=== PATIENT | male | born 1960 ===

== ENCOUNTER → 2023-06-30 14:34 | Outpatient (CLI) | payer BC, OTHER, SELFPAY ==
--- NOTE | ~2023-06-30 | MR_ITS ---
MRI of the lumbar spine Clinical History: Left leg pain Technique: Axial T2-weighted images, and sagittal T1-weighted, T2-weighted, and T2 fat-sat images wer e acquired. COMPARISON: 02/24/2023 Findings: There is no acute fracture or subluxation of the lumbar spine. There is posterior interbody fusion at the L4-L5 level, with orthopedic hardware and L4 laminectomy. No suspicious bone marrow si gnal abnormality evident. At L1-L2, there is no disc bulge or herniation. There is moderate to advanced facet arthropathy. Ther e is mild central canal stenosis/thecal sac compression. Bilateral neural foramina are preserved. At L2-L3, there is advanced facet arthropathy, which contributes to mild central canal stenosis/theca l sac compression. Bilateral neural foramina are preserved. At L3-L4, there is mild disc bulge and severe facet arthropathy, with severe spinal canal stenosis/th ecal sac compression. There is advanced bilateral neural foraminal narrowing. At L4-L5, there is mild disc bulge with posterior decompression. No central canal stenosis. There is moderate to advanced bilateral neural foraminal narrowing. At L5-S1, there is mild disc bulge with severe facet arthropathy. No central canal stenosis. There is severe bilateral neural foraminal narrowing, left worse than right. Paravertebral soft tissues are unremarkable aside from expected postoperative change. Impression: Severe degenerative spondylosis, as detailed above, probably worst at L3-L4. Posterior and interbody fusion at L4-L5, as detailed above. Reviewed, dictated and finalized at [facility]. Impression: Severe degenerative spondylosis, as detailed above, probably worst at L3-L4. Posterior and interbody fusion at L4-L5, as detailed above.
== END ==
PROVIDERS: PCP Neurological Surgery; Visit Provider Neurological Surgery
DX: M79.605 Pain in left leg (principal); M47.896 Other spondylosis, lumbar region; Z98.1 Arthrodesis status
CPT/HCPCS: 72148

== ENCOUNTER → 2023-11-20 07:28 | Outpatient (CLI) | payer BC, OTHER, SELFPAY ==
--- NOTE | ~2023-11-20 | MR_ITS ---
MRI of the lumbar spine Clinical History: Left foot drop Technique: Axial T2-weighted images, and sagittal T1-weighted, T2-weighted, and STIR images were acqu ired. Following intravenous administration of 20 cc MultiHance gadolinium, T1-weighted fat-sat imagin g was performed in the axial and sagittal planes. Findings: No acute fracture or subluxation seen. There is posterior and interbody fusion from L4 to L 5, with interbody fusion cage, as well as bilateral rods and posterior transpedicular screws. L4 lami nectomy defects are present. No suspicious bone marrow signal reality seen. At L1-L2, there is no disc bulge or herniation. There is moderate to advanced facet arthropathy. No c entral canal stenosis or neural foraminal narrowing. At L2-L3, there is no disc bulge or herniation. There is advanced facet arthropathy. There is minimal canal stenosis. No neural foraminal narrowing evident. At L3-L4, there is disc bulge, prominent facet arthropathy, and minimally prominent epidural fat, res ulting in severe spinal canal stenosis/thecal sac compression. There is moderate bilateral neural for aminal narrowing. At L4-L5, there is no disc bulge or herniation. No spinal canal stenosis. There is probable mild bila teral neural foraminal narrowing. At L5-S1, there is minimal disc bulge and moderate to advanced facet arthropathy. No central canal st enosis. There is probable severe bilateral neural foraminal narrowing, left worse than right. Paravertebral soft tissues are unremarkable aside from expected postoperative change. No abnormal/gus picious postcontrast enhancement identified. Impression: Posterior and interbody fusion with posterior decompression at L4-L5. Severe degenerative spondylosis at L3-L4, as detailed above. Probable advanced bilateral neural foraminal narrowing at L5-S1. Reviewed, dictated and finalized at [facility]. [employer] Impression: Posterior and interbody fusion with posterior decompression at L4-L5. Severe degenerative spondylosis at L3-L4, as detailed above. Probable advanced bilateral neural foraminal narrowing at L5-S1.
== END ==
PROVIDERS: PCP Neurological Surgery; Visit Provider Neurological Surgery
DX: M21.372 Foot drop, left foot (principal); Z98.1 Arthrodesis status; M47.896 Other spondylosis, lumbar region
CPT/HCPCS: 72158; A9577